=== PATIENT | male | born 2000 | race Caucasian/White ===

== ENCOUNTER 2024-05-23 17:36 | Emergency (ER) | payer SELFPAY ==
--- NOTE | 2024-05-23 18:20 | ER ---
Nurse's Notes [facility] Name: Varun Todd Age: 23 yrs Sex: Male : 2000 Arrival Date: 05/23/2024 Time: 17:36 Bed DX3 Private MD: Diagnosis: Rash and other nonspecific skin eruption Presentation: 05/23 18:13 Chief complaint: Patient states: red rash to ganga arms/legs and left low back x 3 days aa5 ago. Coronavirus screen: At this time, the client does not indicate any symptoms associated with coronavirus-19. Ebola Screen: Patient denies travel to an Ebola-affected area in the 21 days before illness onset. Initial Sepsis Screen: Does the patient meet any 2 criteria? HR > 90 bpm. Does the patient have a suspected source of infection? No. Patient's initial sepsis screen is negative. Risk Assessment: Do you want to hurt yourself or someone else? Patient reports no desire to harm self or others. Onset of symptoms was 2023. 18:13 Acuity: MAYANK 4 aa5 18:13 Method Of Arrival: Ambulatory aa5 Historical: - Allergies: 18:19 No Known Allergies; aa5 - PMHx: 18:19 Hypercholesterolemia; Pneumonia; aa5 - PSHx: 18:19 None; aa5 - Immunization history:: Adult Immunizations unknown. - Infectious Disease History:: Denies. - Social history:: Smoking status: Reported history of juuling and/or vaping. Assessment: 18:29 Reassessment: Patient is alert, oriented x 3, equal unlabored respirations, skin aa5 warm/dry/pink. Vital Signs: 18:13 BP 142 / 82; Pulse 96; Resp 18 S; Temp 99.4(O); Pulse Ox 100% on R/A; aa5 ED Course: 17:38 Patient arrived in ED. mg5 17:39 Rosalee Villagomez PA-C is [facility] sb4 17:39 Rosas Bermudez MD is Attending Physician. sb4 18:13 Arm band placed on. aa5 18:14 Triage completed. aa5 18:29 No provider procedures requiring assistance completed. Patient did not have IV access aa5 during this emergency room visit. Administered Medications: No medications were administered Outcome: 18:19 Discharge ordered by . sb4 18:29 Discharged to home ambulatory, with significant other, aa5 18:29 Condition: stable 18:29 Discharge instructions given to patient, Instructed on discharge instructions, follow up and referral plans. medication usage, Demonstrated understanding of instructions, follow-up care, medications, Prescriptions given X 2, 18:30 Patient left the ED. aa5 Signatures: Alvina Chang RN RN aa5 Rosalee Villagomez, [facility] sb4 Sanjuanita Garcia mg5 Corrections: (The following items were deleted from the chart) 18:14 18:13 Chief complaint: Patient states: red rash to ganga arms and left low back. aa5 aa5 18:16 18:13 Chief complaint: Patient states: red rash to ganga arms and left low back x 3 days aa5 ago. aa5 18:19 18:13 BP 142 / 82; Pulse 96bpm; Resp 18bpm; Spontaneous; Pulse Ox 100% RA; aa5 aa5 18:33 18:32 Reassessment: Patient is alert, oriented x 3, equal unlabored respirations, skin aa5 warm/dry/pink. aa5
--- NOTE | 2024-05-23 18:20 | EDPHYS ---
Physician Documentation [facility] Name: Varun Todd Age: 23 yrs Sex: Male : 2000 Arrival Date: 05/23/2024 Time: 17:36 Bed DX3 Private MD: ED Physician Rosas Bermudez HPI: 05/23 19:27 This 23 yrs old Male presents to ER via Ambulatory with complaints of Rash. sb4 19:27 The patient's rash thought to be caused by an unknown cause. The rash is located on the sb4 back, right arm, left arm and right leg. The rash can be described as diffuse, erythematous, raised. Onset: The symptoms/episode began/occurred 3 day(s) ago. Associated signs and symptoms: Pertinent positives: fever, itching, Pertinent negatives: burning sensation, difficulty breathing, Pain. Severity of symptoms: At their worst the symptoms were mild in the emergency department the symptoms are unchanged. Treatment given at home: none. The patient has not experienced similar symptoms in the past. The patient has not recently seen a physician. Historical: - Allergies: 18:19 No Known Allergies; aa5 - PMHx: 18:19 Hypercholesterolemia; Pneumonia; aa5 - PSHx: 18:19 None; aa5 - Immunization history:: Adult Immunizations unknown. - Infectious Disease History:: Denies. - Social history:: Smoking status: Reported history of juuling and/or vaping. ROS: 19:28 Constitutional: Negative for fever, chills, and weight loss, sb4 19:28 Skin: Positive for rash, of the right leg and left arm and right arm and back, 19:28 All other systems are negative, Exam: 19:28 Constitutional: This is a well developed, well nourished patient who is awake, alert, sb4 and in no acute distress. Head/Face: Normocephalic, atraumatic. Eyes: Extra-ocular motions intact. Periorbital areas with no swelling, redness, or edema. ENT: Mucous membranes moist. Respiratory: No increased work of breathing, no retractions or nasal flaring. 19:28 Skin: rash a mild rash is noted, rash can be described as erythematous, macular, nonspecific, raised, on the right leg and left arm and right arm and back, Vital Signs: 18:13 BP 142 / 82; Pulse 96; Resp 18 S; Temp 99.4(O); Pulse Ox 100% on R/A; aa5 MDM: 18:05 Medical Screening Exam initiated sb4 19:28 Data reviewed: vital signs, nurses notes, and as a result, I will discharge patient. sb4 Counseling: I had a detailed discussion with the patient and/or guardian regarding the historical points, exam findings, and any diagnostic results supporting the discharge/admit diagnosis, the presence of at least one elevated blood pressure reading (>120/80) during this emergency department visit, the need for outpatient follow up, for definitive care, to return to the emergency department if symptoms worsen or persist or if there are any questions or concerns that arise at home. Administered Medications: No medications were administered Disposition Summary: 05/23/24 18:19 Discharge Ordered Notes: Location: Home sb4 Problem: new sb4 Symptoms: are unchanged sb4 Condition: Stable sb4 Diagnosis - Rash and other nonspecific skin eruption sb4 Followup: sb4 - With: Emergency Department - When: As needed - Reason: Fever > 102 F, Trouble breathing, Worsening of condition Discharge Instructions: - Discharge Summary Sheet sb4 - Rash, Adult, [id number] sb4 Forms: - Antibiotic Education sb4 - Patient Portal Instructions sb4 - Leadership Thank You Letter sb4 Prescriptions: - Prednisone 20 mg Oral Tablet - take 1 tablet ORAL route once daily for 5 days; 5 tablet; Refills: 0, Product sb4 Selection Permitted - Doxycycline Hyclate 100 mg Oral Tablet - take 1 tablet ORAL route every 12 hours; 20 tablet; Refills: 0, Product sb4 Selection Permitted Signatures: Alvina Chang RN RN aa5 Rosalee Villagomez PA-C PAJaimee sb4
[2024-05-23 19:43] VITALS: BP 142/82; TEMP 99.4; O2SAT 100
== END 2024-05-23 18:30 | disposition home or self-care (01) ==
LOC: ER 17:36
DX: R21 Rash and other nonspecific skin eruption (principal); R50.9 Fever, unspecified
CPT/HCPCS: 99283